=== PATIENT | female | born 1965 | race Hispanic/Latino ===

== ENCOUNTER → 2025-06-16 | Outpatient (CLI) | payer OTHER ==
[~2025-06-16] MED LIST: IOHEXOL-350 75 ML VIAL IV ONE
--- NOTE | 2025-06-17 01:27 | HMCIMG ---
EXAMINATION: CT Abdomen and Pelvis With Intravenous Contrast with Delayed Urographic Phase Imaging CLINICAL INDICATION: Other specified conditions associated with female genital organs and menstruation. TECHNIQUE: Axial CT images of the abdomen and pelvis were obtained following intravenous administration of iodinated contrast material. A delayed urographic phase was acquired at 7 minutes. Multiplanar reformatted images were reviewed. Dose modulation and iterative reconstruction techniques were utilized. A total of 76 mL of iodinated intravenous contrast was administered. Total CTDIvol is 30.7 mGy and total DLP is 1419.90 mGycm. COMPARISON: No prior CT examinations are available for comparison.FINDINGS Lung Bases: Bibasilar streaky atelectasis is present. Liver: The liver demonstrates diffuse fatty infiltration and is normal in size, measuring approximately 14 cm. A well-defined, non-enhancing simple cyst is present in a subcapsular location within segment , measuring 1.4 1.2 cm. No suspicious enhancing hepatic lesions are identified. A right-sided diaphragmatic hump is noted. Gallbladder and Biliary System: The gallbladder is unremarkable. No intrahepatic or extrahepatic biliary ductal dilatation is seen. Pancreas: The pancreas is unremarkable in size, contour, and enhancement pattern. Spleen: The spleen is unremarkable. Adrenal Glands: Both adrenal glands are unremarkable. Kidneys and Urinary Tract: A non-obstructive 4 mm calculus is present in the superior pole calyx of the left kidney. No right renal calculi are identified. There is no evidence of ureteric calculi or hydroureteronephrosis on either side. Delayed urographic phase images demonstrate symmetric contrast excretion through both renal pelvicalyceal systems and ureters. Gastrointestinal Tract: Scattered colonic diverticula are present without features of diverticulitis. The small and large bowel loops are otherwise unremarkable. The appendix is normal in appearance and is visualized on series 2, image 60/108. Peritoneum and Mesentery: No free fluid or free air is identified. Abdominal Wall: A tiny fat-containing umbilical hernia is present with a defect measuring approximately 0.7 cm. Pelvic Organs: The uterus is surgically absent. A well-defined, non-enhancing left adnexal cyst measuring 2.3 2.0 x 2.3 cm is identified without internal septations, calcification, or fat. The right adnexa is unremarkable. Vasculature: The abdominal aorta demonstrates minimal atheromatous calcification without aneurysm or dissection. Osseous Structures: Degenerative changes are present in the lumbar spine. Bilateral L5 spondylolysis with grade I anterolisthesis of L5 over S1 is noted. No acute osseous abnormality is seen.IMPRESSION * Non-obstructive 4 mm left renal superior pole calyceal calculus. * Diffuse hepatic steatosis with a benign-appearing simple hepatic cyst in segment . * Simple left adnexal cyst measuring 2.3 2.0 x 2.3 cm without suspicious imaging features. With post hysterectomy state, this may represent a lymphocele/benign peritoneal inclusion cyst. * Colonic diverticulosis without evidence of diverticulitis. /[place]
== END | disposition home or self-care (01) ==
LOC: RAH 08:54
PROVIDERS: ATTEND Nurse Practitioner Family
DX: N20.0 Calculus of kidney (principal); K76.0 Fatty (change of) liver, not elsewhere classified; K57.30 Diverticulosis of large intestine without perforation or abscess without bleeding; E27.8 Other specified disorders of adrenal gland; K42.9 Umbilical hernia without obstruction or gangrene; N94.89 Other specified conditions associated with female genital organs and menstrual cycle; M47.817 Spondylosis without myelopathy or radiculopathy, lumbosacral region; M43.17 Spondylolisthesis, lumbosacral region; J98.11 Atelectasis; Z90.710 Acquired absence of both cervix and uterus
CPT/HCPCS: 74177; Q9967